=== PATIENT | female | born 2000 | race Caucasian/White ===

== ENCOUNTER 2022-09-16 21:04 | Emergency (ER) | payer BC, MEDICAID, SELFPAY ==
[2022-09-16 21:11] VITALS: BP 132/80; PULSE 80; RESP 16; TEMP 36.8; O2SAT 100
--- NOTE | 2022-09-16 21:31 | ED.WOUNDLAC ---
HPI - Wound/Laceration General Chief Complaint: Wound/Laceration Stated Complaint: laceration Time Seen by Provider: 09/16/22 21:17 History of Present Illness HPI narrative: 22-year-old female presents the emergency room with a laceration to her left heel. Patient states that she was pulling on her desk, when the chair cut the back of her heel. Was able to controlled prior to arrival. Unknown when her last tetanus was. Related Data Allergies Allergy/AdvReac Type Severity Reaction Status Date / Time No Known Allergies Allergy Verified 09/16/22 21:53 Review of Systems Review of Systems: CONSTITUTIONAL: Denies fever, chills, or sweats. EYES: Denies visual changes, redness, or discharge. ENT: Denies rhinorrhea, congestion, sore throat, or otalgia. CARDIOVASCULAR: Denies chest pain, palpitations, or edema. RESPIRATORY: Denies cough or dyspnea. GASTROINTESTINAL: Denies abdominal pain, nausea, vomiting, or diarrhea. GENITOURINARY: Denies dysuria or hematuria. SKIN: Laceration of left heel MUSCULOSKELETAL: Denies back pain, joint pain, or myalgia. NEUROLOGIC: Denies headache, numbness, dizziness, or weakness. PSYCHIATRIC: Denies anxiety or depression. Exam Narrative: GENERAL: Well-appearing, well-nourished, no physical limitations, and in no acute distress. HEAD: Normocephalic, atraumatic. EYES: Conjunctivae normal, PERRLA and EOMI. CHEST: Clear to auscultation. No respiratory distress. No wheezes rales or rhonchi. HEART: Regular rate and rhythm. No murmur heard. Normal peripheral pulses. EXTREMITIES: Normal range of motion. No edema. No clubbing or cyanosis SKIN: left heel: Centimeter linear laceration to the left heel NEURO: No focal deficits. Alert and oriented x3. MAEW. CN's II-XI intact bilaterally, normal gait PSYCH: Cooperative. Normal mood and affect. Course Vital Signs Vital signs: Vital Signs Temperature 36.8 C 09/16/22 21:11 Pulse Rate 80 09/16/22 21:11 Respiratory Rate 16 09/16/22 21:11 Blood Pressure 132/80 09/16/22 21:11 Pulse Oximetry 100 09/16/22 21:11 Oxygen Delivery Room Air 09/16/22 21:11 Temperature 36.8 C 09/16/22 21:11 Pulse Rate 80 09/16/22 21:11 Respiratory Rate 16 09/16/22 21:11 Blood Pressure 132/80 09/16/22 21:11 Pulse Oximetry 100 09/16/22 21:11 Oxygen Delivery Room Air 09/16/22 21:11 Procedures Laceration Laceration 1: Date: 09/16/22 Time: 21:58 Site: lower extremity Side (If applicable): left Size (cm): 1.5 Description: linear Depth: simple, single layer Local Anesthetic: lidocaine 1% Amount of anesthesia used (mL): 3 Pre-repair: wound explored and irrigated ====== Skin Level ====== Skin layer closed with: nylon Size (cm): 4-0 Number of sutures: 3 Technique: simple, interrupted ====== Subcutaneous Layer ====== ====== Muscle Layer ====== ====== Tendon Layer ====== Discharge Plan Discharge Clinical Impression: Laceration Patient Disposition: Home, Self-Care Condition: Stable Instructions: Antibiotic Form, Laceration (ED) Additional Instructions: Sutures come out in 10 days. Keep wound clean and dry. May apply Neosporin at night. Monitor for signs of infection which include redness, swelling, tenderness, purulent drainage. May take Tylenol and ibuprofen as needed for the Follow-up/Referrals: PHYSICIAN,POLISHER NUMERAL [Primary Care Provider] - Time of Disposition: 21:59
== END 2022-09-16 22:23 | disposition home or self-care (01) ==
LOC: ANHED 22:23
PROVIDERS: Emergency Provider Nurse Practitioner Family
DX: S91.312A Laceration without foreign body, left foot, initial encounter (principal); W26.8XXA Contact with other sharp object(s), not elsewhere classified, initial encounter
CPT/HCPCS: 10061; 12001; 99283